=== PATIENT | male | born 1995 | race Caucasian/White ===

== ENCOUNTER 2020-11-07 01:23 | Emergency (ER) | payer OTHER ==
[~2020-11-07] VITALS: Ht 175.3 cm; Wt 57.9 kg
[2020-11-07 01:24] VITALS: BP 134/91
--- NOTE | 2020-11-07 17:50 | ECGEPIP ---
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
== END 2020-11-07 02:43 | disposition left against medical advice (07) ==
LOC: M ED 01:23
DX: Z53.21 Procedure and treatment not carried out due to patient leaving prior to being seen by health care provider (principal)

== ENCOUNTER 2020-11-07 06:14 | Emergency (ER) | payer OTHER ==
[~2020-11-07] VITALS: Ht 175.3 cm; Wt 57.4 kg
[2020-11-07 07:43] LABS: BASO % 0.5 % (0.0-1.0); EOS # 0.1 10^3/uL (0.0-0.5); EOS % 1.2 % (0.0-3.0); HEMATOCRIT 41.3 % (42.0-52.0); HEMOGLOBIN 14.1 g/dl (13.5-17.5); LYMPH # 2.2 10^3/uL (1.5-5.0); LYMPH % 37.1 % (24.0-44.0); MEAN CORPUSCULAR HEMOGLOBIN 31.8 pg (27.0-33.0); MEAN CORPUSCULAR HGB CONC 34.1 g/dl (32.0-36.5); MEAN CORPUSCULAR VOLUME 93.2 fl (80.0-96.0); MONO # 0.7 10^3/uL (0.0-0.8); MONO % 11.9 % (2.0-8.0); NEUTROPHILS # 2.9 10^3/uL (1.5-8.5); NEUTROPHILS % 49.1 % (36.0-66.0); PLATELET COUNT, AUTOMATED 280 10^3/uL (150-450); RED BLOOD COUNT 4.43 10^6/uL (4.30-6.10)
[2020-11-07 08:08] LABS: PROTHROMBIN TIME 13.4 SECONDS (12.5-14.3)
[2020-11-07 08:10] LABS: ALBUMIN 4.5 GM/DL (3.2-5.2); ALT/SGPT 23 U/L (12-78); BILIRUBIN,DIRECT 0.2 MG/DL (0.0-0.2); BILIRUBIN,TOTAL 0.4 MG/DL (0.2-1.0); BLOOD UREA NITROGEN 14 MG/DL (7-18); CALCIUM LEVEL 9.4 MG/DL (8.5-10.1); CARBON DIOXIDE LEVEL 26 MEQ/L (21-32); CHLORIDE LEVEL 107 MEQ/L (98-107); CK-MB VALUE MASS 1.3 NG/ML (<3.6); CPK CREATINE PHOSPHOKINASE 319 U/L (39-308); CREATININE FOR GFR 1.01 MG/DL (0.70-1.30); GLOMERULAR FILTRATION RATE > 60.0 (>60); GLUCOSE, FASTING 83 MG/DL (70-100); LIPASE 59 U/L (73-393); MB/CK RELATIVE INDEX 0.41 (< OR =4); POTASSIUM SERUM 3.9 MEQ/L (3.5-5.1); SODIUM LEVEL 139 MEQ/L (136-145); TOTAL PROTEIN 7.8 GM/DL (6.4-8.2); TROPONIN I < 0.02 NG/ML (< 0.10)
[2020-11-07 08:11] LABS: D-DIMER QUANT 289.91 ng/ml (<500)
[2020-11-07] MEDS ORDERED: HALOPERIDOL 5MG/ML VIAL (J1630 PER 1) IV STA (08:18)
[2020-11-07] MEDS ORDERED: NS 1,000 ML IV ONE (08:45)
[2020-11-07] MEDS ORDERED: LORazepam 2 MG/ML VIAL IV STA (08:45)
--- NOTE | 2020-11-07 09:31 | REP ---
INDICATION: CP. COMPARISON: None. FINDINGS: The superior mediastinal structures are midline. The cardiac silhouette is unremarkable in size, shape, and position. The diaphragmatic surfaces of the lungs are regular, and the costophrenic angles are clear. The pulmonary gomez are clear. The imaged osseous structures are intact. IMPRESSION: There is no acute cardiopulmonary disease. <Electronically signed by Theron Miller > 11/07/20 0927
[2020-11-07 10:00] VITALS: BP 110/56
--- NOTE | 2020-11-07 17:51 | ECGEPIP ---
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
== END 2020-11-07 10:23 | disposition home or self-care (01) ==
LOC: M ED 06:14
DX: R07.9 Chest pain, unspecified (principal); R00.2 Palpitations; R00.1 Bradycardia, unspecified; R06.02 Shortness of breath; F41.9 Anxiety disorder, unspecified; F17.220 Nicotine dependence, chewing tobacco, uncomplicated

== ENCOUNTER → 2021-05-21 | Outpatient (CLI) | payer MEDICAID ==
[2021-05-21 16:48] LABS: BASO # 0.1 10^3/uL (0.0-0.2); BASO % 0.9 % (0.0-1.0); EOS # 0.1 10^3/uL (0.0-0.5); EOS % 1.2 % (0.0-3.0); HEMATOCRIT 45.3 % (42.0-52.0); HEMOGLOBIN 15.4 g/dl (13.5-17.5); LYMPH # 1.7 10^3/uL (1.5-5.0); LYMPH % 24.3 % (24.0-44.0); MEAN CORPUSCULAR HEMOGLOBIN 31.2 pg (27.0-33.0); MEAN CORPUSCULAR VOLUME 91.7 fl (80.0-96.0); MONO # 0.6 10^3/uL (0.0-0.8); MONO % 8.8 % (2.0-8.0); NEUTROPHILS # 4.5 10^3/uL (1.5-8.5); NEUTROPHILS % 64.7 % (36.0-66.0); PLATELET COUNT, AUTOMATED 302 10^3/uL (150-450); RED BLOOD COUNT 4.94 10^6/uL (4.30-6.10); WHITE BLOOD COUNT 6.9 10^3/uL (4.0-10.0)
[2021-05-21 17:26] LABS: ALBUMIN 4.9 GM/DL (3.2-5.2); ALT/SGPT 25 U/L (12-78); BILIRUBIN,TOTAL 0.8 MG/DL (0.2-1.0); BLOOD UREA NITROGEN 14 MG/DL (7-18); CALCIUM LEVEL 9.9 MG/DL (8.5-10.1); CARBON DIOXIDE LEVEL 32 MEQ/L (21-32); CHLORIDE LEVEL 102 MEQ/L (98-107); CREATININE FOR GFR 1.23 MG/DL (0.70-1.30); GLOMERULAR FILTRATION RATE > 60.0 (>60); GLUCOSE, FASTING 106 MG/DL (70-100); POTASSIUM SERUM 3.8 MEQ/L (3.5-5.1); SODIUM LEVEL 139 MEQ/L (136-145); TOTAL PROTEIN 8.5 GM/DL (6.4-8.2)
== END ==
LOC: M WUC 13:33
PROVIDERS: ATTEND Internal Medicine
DX: R00.0 Tachycardia, unspecified (principal)

== ENCOUNTER 2021-09-04 18:17 | Emergency (ER) | payer MEDICAID ==
[~2021-09-04] VITALS: Ht 175.3 cm; Wt 65.9 kg
[2021-09-04 23:22] VITALS: BP 122/59
== END 2021-09-04 23:30 | disposition home or self-care (01) ==
LOC: M ED 18:17
DX: T18.9XXA Foreign body of alimentary tract, part unspecified, initial encounter (principal); Y92.511 Restaurant or cafe as the place of occurrence of the external cause; Y93.9 Activity, unspecified; Y99.9 Unspecified external cause status

== ENCOUNTER 2021-10-03 13:09 | Emergency (ER) | payer MEDICAID, SELFPAY ==
[~2021-10-03] VITALS: Ht 175.3 cm; Wt 68.2 kg
[2021-10-03 13:09] VITALS: BP 116/75
[2021-10-03 15:00] LABS: BASO # 0.1 10^3/uL (0.0-0.2); BASO % 0.6 % (0.0-1.0); EOS # 0.1 10^3/uL (0.0-0.5); EOS % 1.6 % (0.0-3.0); HEMOGLOBIN 15.6 g/dl (13.5-17.5); LYMPH # 1.5 10^3/uL (1.5-5.0); LYMPH % 19.8 % (24.0-44.0); MEAN CORPUSCULAR HEMOGLOBIN 31.8 pg (27.0-33.0); MEAN CORPUSCULAR HGB CONC 34.7 g/dl (32.0-36.5); MEAN CORPUSCULAR VOLUME 91.8 fl (80.0-96.0); MONO # 0.6 10^3/uL (0.0-0.8); MONO % 7.9 % (2.0-8.0); NEUTROPHILS # 5.4 10^3/uL (1.5-8.5); NEUTROPHILS % 69.8 % (36.0-66.0); PLATELET COUNT, AUTOMATED 267 10^3/uL (150-450); WHITE BLOOD COUNT 7.7 10^3/uL (4.0-10.0)
[2021-10-03 15:23] LABS: BLOOD UREA NITROGEN 21 MG/DL (7-18); CALCIUM LEVEL 9.5 MG/DL (8.5-10.1); CARBON DIOXIDE LEVEL 34 MEQ/L (21-32); CHLORIDE LEVEL 104 MEQ/L (98-107); CREATININE FOR GFR 1.23 MG/DL (0.70-1.30); GLOMERULAR FILTRATION RATE > 60.0 (>60); GLUCOSE, FASTING 88 MG/DL (70-100); POTASSIUM SERUM 3.9 MEQ/L (3.5-5.1); SODIUM LEVEL 140 MEQ/L (136-145)
[2021-10-03] MEDS ORDERED: IBUPROFEN 600MG TAB PO ONE (17:50)
[2021-10-03 18:15] LABS: ALBUMIN 4.7 GM/DL (3.2-5.2); ALT/SGPT 33 U/L (12-78); BILIRUBIN,DIRECT < 0.1 MG/DL (0.0-0.2); BILIRUBIN,TOTAL 0.3 MG/DL (0.2-1.0); FREE T4 1.09 NG/DL (0.76-1.46); TOTAL PROTEIN 8.2 GM/DL (6.4-8.2)
[2021-10-03] MEDS ORDERED: PROT1TAB2 PO (20:27)
== END 2021-10-03 20:37 | disposition home or self-care (01) ==
LOC: M ED 13:09
DX: R10.13 Epigastric pain (principal); I45.19 Other right bundle-branch block; Z87.891 Personal history of nicotine dependence; F12.20 Cannabis dependence, uncomplicated

== ENCOUNTER → 2022-01-23 | Outpatient (CLI) | payer OTHER ==
[~2022-01-23] MED LIST: ISOVUE-370 76% 100ML VIAL As Ordered ONE; PROT1TAB2 PO
== END ==
LOC: M RAD 17:17
PROVIDERS: ATTEND Otolaryngology
DX: R22.1 Localized swelling, mass and lump, neck (principal)
CPT/HCPCS: 70491; Q9967

== ENCOUNTER → 2022-07-25 | Outpatient (CLI) | payer OTHER ==
[~2022-07-25] MED LIST changes: -ISOVUE-370 76% 100ML VIAL As Ordered ONE
== END ==
LOC: M LABSMTC 10:37
PROVIDERS: ATTEND Anesthesiology
DX: Z01.818 Encounter for other preprocedural examination (principal)

== ENCOUNTER 2022-07-30 10:11 | Day surgery (SDC) | payer OTHER ==
[~2022-07-30] VITALS: Ht 175.3 cm; Wt 63.0 kg
[2022-07-30] MEDS ORDERED: LR 1,000 ML IV SCH ×2 (10:40→15:10)
[2022-07-30] MEDS ORDERED: propofoL 200 MG/20 ML VIAL As Ordered ONE (11:08)
[2022-07-30] MEDS ORDERED: LIDOCAINE 2% 100MG/5ML SDV (FOR ANES.) As Ordered ONE (11:08)
[2022-07-30] MEDS ORDERED: ROCURONIUM BROMIDE 50MG/5ML VIAL As Ordered ONE (11:08)
[2022-07-30] MEDS ORDERED: MIDAZOLAM INJ 2MG/2ML VIAL As Ordered ONE (11:09)
[2022-07-30] MEDS ORDERED: fentaNYL 250 MCG/5 ML INJECTION As Ordered ONE (11:09)
[2022-07-30] MEDS ORDERED: METHYLENE BLUE 0.5% (5MG/ML) 10 ML AMP (PROVAYBLUE) As Ordered ONE (13:25)
[2022-07-30] MEDS ORDERED: LIDOCAINE W/EPINEPHRINE 1% 20ML VIAL As Ordered ONE (13:26)
[2022-07-30] MEDS ORDERED: EPINEPHrine 1MG/ML INJ 30ML MD-VIAL As Ordered ONE (13:26)
[2022-07-30] MEDS ORDERED: SODIUM CHLORIDE 0.9% NASAL GEL 15GM (AYR) As Ordered ONE (13:26)
[2022-07-30] MEDS ORDERED: KETOROLAC 60MG 2ML VIAL As Ordered ONE (14:06)
[2022-07-30] MEDS ORDERED: ACETAMINOPHEN 1000MG 100ML IV BAG As Ordered ONE (14:06)
[2022-07-30] MEDS ORDERED: SUGAMMADEX SODIUM 500 MG/5 ML VIAL (BRIDION) As Ordered ONE (14:06)
[2022-07-30] MEDS ORDERED: ONDANSETRON 4MG 2ML VIAL As Ordered ONE (14:06)
[2022-07-30] MEDS ORDERED: MORPHINE 2 MG/ML 1ML VIAL IV PRN (15:10)
[2022-07-30] MEDS ORDERED: fentaNYL 100 MCG/2 ML INJECTION IV PRN (15:10)
[2022-07-30] MEDS ORDERED: oxyCODONE 5MG TAB PO PRN (15:10)
[2022-07-30] MEDS ORDERED: ONDANSETRON 4MG 2ML VIAL IV PRN (15:10)
[2022-07-30 16:23] VITALS: BP 136/81
== END 2022-07-30 16:25 | disposition home or self-care (01) ==
LOC: M SDC 10:11
PROVIDERS: ATTEND Otolaryngology
DX: J34.2 Deviated nasal septum (principal); F12.10 Cannabis abuse, uncomplicated
CPT/HCPCS: 30520; 88300; J1100; J2405

== ENCOUNTER → 2025-04-28 | Outpatient (CLI) | payer OTHER | LOC: M PLARAD 07:48 | PROVIDERS: ATTEND Podiatrist Foot & Ankle Surgery | DX: M25.572 Pain in left ankle and joints of left foot (principal); M79.671 Pain in right foot ==